=== PATIENT | female | born 1985 | race African-American/Black ===

== ENCOUNTER 2024-12-05 18:37 | Emergency (ER) | payer MEDICAID ==
[~2024-12-05] VITALS: Ht 170.2 cm; Wt 79.4 kg
[~2024-12-05 18:37] MED LIST: NALO4SPR BNOSTRILS
[2024-12-05 18:50] VITALS: BP 109/69; TEMP 98.3
[2024-12-05 19:38] VITALS: O2SAT 99
[2024-12-05 19:41] LABS: APPEARANCE,URINE CLEAR (CLEAR); BILIRUBIN,URINE NEGATIVE (NEGATIVE); BLOOD, URINE NEGATIVE Ery/uL (NEGATIVE); COLOR,URINE YELLOW (YELLOW); KETONES,URINE NEGATIVE (NEGATIVE); LEUKOCYTE ESTERASE ,URINE 1+ (NEGATIVE); NITRITE, URINE NEGATIVE (NEGATIVE); PROTEIN,URINE NEGATIVE (NEGATIVE); UGLUCOSE NEGATIVE (NEGATIVE)
[2024-12-05 19:44] LABS: PREGNANCY TEST URINE QUAL NEGATIVE (NEGATIVE)
[2024-12-05 19:46] LABS: SQUAMOUS EPITHELIAL CELL,UR Moderate /HPF (None Seen)
[2024-12-05 19:49] LABS: ADD URINE CULTURE YES; BACTERIA,URINE Moderate /HPF (None Seen)
[2024-12-05 19:50] LABS: RBC,URINE 0-2 /HPF (0-2)
[2024-12-06 13:02] LABS: HIV-1 p24 ANTIGEN NON REACTIVE (NONREACTIVE); HIV-1/2 ANTIBODY NON REACTIVE (NONREACTIVE)
[2024-12-07 22:06] LABS: CHLAMYDIA TRACHOMATIS NAA Negative (Negative); NEISSERIA GONORRHOEAE NAA Negative (Negative)
== END 2024-12-05 19:40 | disposition home or self-care (01) ==
LOC: ER 18:44
DX: Z11.3 Encounter for screening for infections with a predominantly sexual mode of transmission (principal); F19.10 Other psychoactive substance abuse, uncomplicated; Z60.2 Problems related to living alone
CPT/HCPCS: 36415; 81001; 84703-TC; 87086-TC; 87491; 87591; 87806